=== PATIENT | female | born 1975 | race Two or more races ===

== ENCOUNTER 2017-02-16 17:38 | Emergency (ER) | payer OTHER ==
--- NOTE | ~2017-02-16 | CT4 ---
[facility] A Service of [facility] RADIOLOGY TEXT RESULTS PATIENT: KRIS BRADLEY LOCATION: [facility] : 77 UNIT #: [id number] AGE: [address]: Boubacar Spencer MD SEX: F ORDER DR: [id number] [facility] [address] [place], [place] [address] [id number] MR#: [id number] Acc #: [id number] NAME: KRIS BRADLEY : 1975 SEX: F STUDY DATE/TIME: 02/16/2017 21:23 UNIT: [facility] ROOM: STUDY DESCRIPTION: CT Abd and Pelv Wo Cont Attending Physician: Boubacar Spencer M.D. Ordering Physician: Boubacar Spencer M.D. Primary Care Physician: Primary Care Physician No MEDICAL IMAGING REPORT This report is preliminary unless electronic signature is present EXAM Abdomen and pelvis CT no contrast 02/16/2017 INDICATION Fever, stomach and back pain that started today. No history of malignancy or prior surgery. TECHNIQUE Noncontrast abdomen and pelvis CT was performed. We have no comparison studies. This CT examination was performed with one or more of the following radiation dose reduction techniques: automatic exposure control, adjustment of mA and/or kV according to patient size, and iterative reconstruction. FINDINGS CT ABDOMEN: Exam degraded by noncontrast technique. No pleural effusion. There is a 5 mm noncalcified nodule in the left lower lobe. If the patient is at low risk for malignancy then followup CT should occur at 12 months. If the patient is at high risk followup should occur at 6-12 months. Aorta demonstrates no aneurysm. The spleen is enlarged. Adrenal glands, pancreas and gallbladder unremarkable and the liver is unremarkable. Kidneys demonstrate no hydronephrosis or radiopaque stone. CT PELVIS: Bladder unremarkable. Visualized ureters unremarkable. No drainable fluid collection in the pelvis or adnexal mass. Bowel demonstrates no inflammatory change or obstruction. Appendix normal. No inguinal adenopathy or fluid collection. No free air. No suspicious bone lesion. IMPRESSION 1. Negative noncontrast CT of the abdomen and pelvis. The appendix is normal. No bowel obstruction or drainable fluid collection. 2. Incidental splenomegaly. [facility] [place]. [facility] A Service of [facility] RADIOLOGY TEXT RESULTS PATIENT: KRIS BRADLEY [id number] 77 UNIT #: [id number] AGE: [address]: Boubacar Spencer MD SEX: F ORDER DR: 3. Incidental 5 mm noncalcified nodule in the left lower lobe. See followup recommendations in the body of the report based on risk factors for malignancy in this patient. Dictated by... Hawk Sykes M.D. THIS IS AN ELECTRONICALLY VERIFIED REPORT Hawk Sykes M.D. at 02/17/2017 11:46 AM JACK/mann TD: 02/17/2017 08:42 JOB #: [id number] MEDICAL IMAGING REPORT Page 1 of 1 COPY
[2017-02-16 18:56] LABS: BASOPHIL% 0.3 % (0-2.5); EOSINOPHIL# 0.1 X10e3 (0-0.7); EOSINOPHIL% 1.3 % (0.0-7.0); HEMOGLOBIN 14.7 gm/dL (12.0-16.0); LYMPHOCYTE# 1.9 X10e3 (1.0-3.5); LYMPHOCYTE% 28.1 % (17.0-45.0); MEAN CELL VOLUME 80.6 FL (83-96); MEAN CORPUSCULAR HEMOGLOBIN 28.1 PG (28-34); MEAN CORPUSCULAR HGB CONC 34.9 g/dL (30-36); MEAN PLATELET VOLUME 9.9 FL (6.5-11.5); MONOCYTE# 0.5 X10e3 (0-1.0); NEUTROPHIL# 4.2 X10e3 (1.5-7.1); NEUTROPHIL% 63.3 % (40-75); PLATELET COUNT 167 X10e3 (140-420); RED BLOOD COUNT 5.22 X10e (3.90-5.30); RED CELL DISTRIBUTION WIDTH 13.4 % (11.0-15.5); WHITE BLOOD COUNT 6.6 X10e3 (4.0-10.5)
[2017-02-16 18:57] LABS: DIFF IND NO
[2017-02-16 19:04] LABS: ALBUMIN SERUM 4.1 g/dL (3.5-5.0); ALKALINE PHOSPHATASE 128 U/L (32-92); ALT (SGPT) 26 U/L (10-40); AST (SGOT) 26 U/L (10-42); BILIRUBIN,TOTAL 0.3 mg/dL (0.2-2.0); BLOOD UREA NITROGEN 7 mg/dL (9-23); CALCIUM SERUM 8.9 mg/dL (8.4-10.2); CARBON DIOXIDE 26 mmol/L (22-31); CHLORIDE 104 mmol/L (100-111); CREATININE SERUM 0.5 mg/dL (0.6-1.4); GLOM FILT RATE Estimated 121.1 mL/min (>60); GLUCOSE FASTING 121 mg/dL (70-110); LIPASE 18 U/L (22-51); POTASSIUM 3.5 mmol/L (3.5-5.1); PROTEIN TOTAL SERUM 6.9 g/dL (6.0-8.3); SODIUM 138 mmol/L (135-145)
[2017-02-16 19:06] LABS: BILIRUBIN, DIRECT <0.1 mg/dL (0.0-0.2); BILIRUBIN,INDIRECT 0.2 mg/dL (0.0-0.9)
[2017-02-16 19:19] LABS: URINE SOURCE CLEAN CATCH
[2017-02-16 19:28] LABS: URINE APPEARANCE CLEAR; URINE BILIRUBIN NEG (NEG); URINE BLOOD NEG (NEG); URINE COLOR YELLOW; URINE GLUCOSE NEG (NEG); URINE KETONE NEG (NEG); URINE LEUKOCYTE ESTERASE NEG (NEG); URINE NITRATE NEG (NEG); URINE PH 6.5 (5-8); URINE PROTEIN NEG (NEG); URINE SPECIFIC GRAVITY 1.011 (1.003-1.035); URINE UROBILINOGEN 0.2 MG/DL (NEG)
[2017-02-16 19:39] LABS: CULTURE INDICATED? NO
== END 2017-02-16 23:00 | disposition home or self-care (01) ==
LOC: CED 17:38
DX: R10.9 Unspecified abdominal pain (principal)
CPT/HCPCS: 36415; 74176; 80048; 80076; 81003; 83690; 84703; 85025; 96372; 99284; J1885